=== PATIENT | male | born 1965 | race Caucasian/White ===

== ENCOUNTER 2017-04-03 08:47 | Inpatient (IN) | payer MEDICAID ==
[~2017-04-03] VITALS: Ht 172.7 cm; Wt 74.5 kg
[2017-04-03 10:27] LABS: CALCIUM 9.2 mg/dL (8.5-10.1); CHLORIDE SERUM 102 mmol/L (98-107); CREATININE SERUM 0.7 mg/dL (0.7-1.3); GFR1 > 60 mL/min; GLUCOSE SERUM 116 mg/dL (74-106); POTASSIUM SERUM 3.9 mmol/L (3.5-5.1); SODIUM SERUM 139 mmol/L (136-145)
[2017-04-03 10:31] LABS: ALBUMIN 3.6 g/dL (3.4-5.0); ALKALINE PHOSPHATASE 85 U/L (46-116); ALT/SGPT 68 U/L (16-63); AST/SGOT 44 U/L (15-37); BILIRUBIN TOTAL 0.48 mg/dL (0.20-1.00); TOTAL PROTEIN, SERUM 7.4 g/dL (6.4-8.2)
[2017-04-03 11:17] LABS: BASOPHIL % 0.2 % (0-2); PLATELET COUNT 194 x10^3mcL (130-400); RED CELL DISTRIBUTION WIDTH 13.4 % (11.5-14.5)
[2017-04-03] MEDS ORDERED: SUBOXONE1 FI2 SL (11:57)
[2017-04-03] MEDS ORDERED: XANAX2 MG PO (11:59)
[2017-04-03 14:59] VITALS: BP 134/87
[2017-04-03 16:26] LABS: MAGNESIUM 2.1 mg/dL (1.8-2.4); PHOSPHOROUS 2.7 mg/dL (2.5-4.9)
[2017-04-03 16:27] LABS: CHOLESTEROL/HDL RATIO 2.5
[2017-04-03 17:54] VITALS: BP 107/63
[2017-04-03 21:00] VITALS: BP 128/83
[2017-04-04 01:16] LABS: microscopic required? NO
[2017-04-04 01:23] LABS: urine erythrocyte NEGATIVE (NEGATIVE)
[2017-04-04 01:32] LABS: AMPHETAMINE QUAL UR POSITIVE (NEG <=1000)
[2017-04-04 05:03] VITALS: BP 128/86
[2017-04-04 16:22] VITALS: BP 133/90
[2017-04-04 19:25] VITALS: BP 108/66
[2017-04-05 09:31] VITALS: BP 120/85
[2017-04-05 17:11] VITALS: BP 121/80
[2017-04-05 19:40] VITALS: BP 131/79
[2017-04-06 06:28] VITALS: BP 120/88
[2017-04-06 21:02] VITALS: BP 115/78
[2017-04-07 06:00] VITALS: BP 119/75
[2017-04-07 06:47] LABS: BASOPHIL % 0.4 % (0-2); PLATELET COUNT 184 x10^3mcL (130-400); RED CELL DISTRIBUTION WIDTH 13.5 % (11.5-14.5)
[2017-04-07 07:01] LABS: CALCIUM 8.7 mg/dL (8.5-10.1); CARBON DIOXIDE 24.8 mmol/L (21-32); CHLORIDE SERUM 102 mmol/L (98-107); CREATININE SERUM 0.7 mg/dL (0.7-1.3); GFR1 > 60 mL/min; GLUCOSE SERUM 95 mg/dL (74-106); MAGNESIUM 1.9 mg/dL (1.8-2.4); PHOSPHOROUS 4.5 mg/dL (2.5-4.9); POTASSIUM SERUM 3.8 mmol/L (3.5-5.1); SODIUM SERUM 138 mmol/L (136-145)
[2017-04-07 08:04] VITALS: Ht 172.7 cm; Wt 74.5 kg
[2017-04-07 10:00] VITALS: BP 123/67
[2017-04-07 20:46] VITALS: BP 122/85
[2017-04-08 05:33] VITALS: BP 129/87
[2017-04-08 09:45] VITALS: BP 124/79
[2017-04-08] MEDS ORDERED: NORCO1 TA2 PO (17:56)
[2017-04-08] MEDS ORDERED: ZOLOFT50 MG PO (17:58)
[2017-04-08 18:21] VITALS: BP 124/79
[2017-04-08 20:31] VITALS: BP 114/79
== END 2017-04-08 23:10 | disposition home or self-care (01) | DRG 751 ==
LOC: ED 08:47 → MU 11:29 → DU 11:29 → MU 04-04 10:58
PROVIDERS: Family Medicine; Specialist
DX: F33.2 Major depressive disorder, recurrent severe without psychotic features (principal); G92 Toxic encephalopathy; R45.851 Suicidal ideations; I10 Essential (primary) hypertension; F11.90 Opioid use, unspecified, uncomplicated; R74.0 Nonspecific elevation of levels of transaminase and lactic acid dehydrogenase [LDH]; F41.9 Anxiety disorder, unspecified; F17.210 Nicotine dependence, cigarettes, uncomplicated; Z91.5 Personal history of self-harm; F41.0 Panic disorder [episodic paroxysmal anxiety]
CPT/HCPCS: 83880; G0480; Q0092

== ENCOUNTER 2017-05-21 20:02 | Inpatient (IN) | payer OTHER, MEDICAID ==
[~2017-05-21] VITALS: Ht 175.3 cm; Wt 75.7 kg
[~2017-05-21 20:02] MED LIST: NORCO1 TA2 PO; SUBOXONE1 FI2 SL; XANAX2 MG PO; ZOLOFT50 MG PO
[2017-05-21 22:12] LABS: BASOPHIL % 0.6 % (0-2); PLATELET COUNT 149 x10^3mcL (130-400); RED CELL DISTRIBUTION WIDTH 13.6 % (11.5-14.5)
[2017-05-21 22:25] LABS: CALCIUM 8.8 mg/dL (8.5-10.1); CARBON DIOXIDE 35.2 mmol/L (21-32); CHLORIDE SERUM 98 mmol/L (98-107); CREATININE SERUM 0.8 mg/dL (0.7-1.3); GFR1 > 60 mL/min; GLUCOSE SERUM 77 mg/dL (74-106); POTASSIUM SERUM 3.6 mmol/L (3.5-5.1); SODIUM SERUM 135 mmol/L (136-145)
[2017-05-21 22:28] LABS: ALBUMIN 3.8 g/dL (3.4-5.0); ALKALINE PHOSPHATASE 91 U/L (46-116); ALT/SGPT 53 U/L (16-63); AST/SGOT 38 U/L (15-37); BILIRUBIN TOTAL 0.7 mg/dL (0.20-1.00); TOTAL PROTEIN, SERUM 6.9 g/dL (6.4-8.2)
[2017-05-22 02:38] LABS: microscopic required? NO
[2017-05-22 03:03] LABS: urine erythrocyte NEGATIVE (NEGATIVE)
[2017-05-22 03:23] LABS: AMPHETAMINE QUAL UR POSITIVE (NEG <=1000)
[2017-05-22 10:53] LABS: PHOSPHOROUS 3.6 mg/dL (2.5-4.9); T3 TOTAL 2.36 ng/mL
[2017-05-22 11:02] LABS: FREE T4 1.19 ng/dL (0.76-1.46); FREE THYROXINE INDEX 3.5 ug/dL (1.4-4.5)
[2017-05-22 12:33] VITALS: BP 133/80
[2017-05-22 12:36] VITALS: Ht 175.3 cm; Wt 75.7 kg
[2017-05-22 16:29] VITALS: BP 106/62
[2017-05-22 22:31] VITALS: BP 122/71
[2017-05-23 06:28] VITALS: BP 118/81
[2017-05-23 09:40] VITALS: BP 136/82
[2017-05-23 16:07] VITALS: BP 108/72
[2017-05-23 21:00] VITALS: BP 139/81
[2017-05-24 06:25] VITALS: BP 122/89
[2017-05-24 08:11] VITALS: BP 143/96
[2017-05-24 22:18] VITALS: BP 109/70
[2017-05-25 06:32] VITALS: BP 122/78
[2017-05-25 08:45] VITALS: BP 128/99
[2017-05-25 13:44] VITALS: BP 142/96
[2017-05-25 17:50] VITALS: BP 140/90
[2017-05-26] MEDS ORDERED: SERTRALINE50 M1 PO (13:01)
[2017-05-26] MEDS ORDERED: ATIVAN1 MG PO (13:18)
[2017-05-26 13:19] VITALS: BP 140/90
== END 2017-05-26 13:35 | disposition home or self-care (01) | DRG 92 ==
LOC: ED 20:02 → DU 05-22 09:07 → MU 05-24 11:29
PROVIDERS: Emergency Medicine; Family Medicine
DX: G92 Toxic encephalopathy (principal); F33.2 Major depressive disorder, recurrent severe without psychotic features; E87.1 Hypo-osmolality and hyponatremia; I10 Essential (primary) hypertension; F14.10 Cocaine abuse, uncomplicated; F15.90 Other stimulant use, unspecified, uncomplicated; F11.988 Opioid use, unspecified with other opioid-induced disorder; F41.0 Panic disorder [episodic paroxysmal anxiety]; Z82.49 Family history of ischemic heart disease and other diseases of the circulatory system
CPT/HCPCS: 83880; 84439; G0480; J7030; Q0092